=== PATIENT | female | born 1975 | race Caucasian/White ===

== ENCOUNTER 2018-03-19 13:06 | Outpatient (CLI) | payer BC ==
--- NOTE | 2018-03-19 15:04 | ULT ---
PELVIC SONOGRAM TRANSABDOMINAL AND TRANSVAGINAL IMAGING: HISTORY: Enlarged uterus. Pelvic mass. FINDINGS: The urinary bladder is unremarkable. The uterus has a heterogeneous echotexture and is 10.4 cm. No focal mass. The endometrium is 1.1 cm. No free fluid. Neither ovary is visualized with transabdomi nal or transvaginal imaging. No solid or cystic adnexal masses. Small nabothian cysts are associate d with the uterine cervix. IMPRESSION: No significant abnormalities are demonstrated. POS: MICHAEL
--- NOTE | 2018-03-19 15:05 | MMO ---
BILATERAL SCREENING MAMMOGRAM: Date: 03/19/18 INDICATION: Baseline exam. COMPARISON: None. FINDINGS: Interpretation of this exam was assisted with computer-aided detection. The breast parenchyma demonstrates a heterogeneous density. There are benign-appearing calcifications within the right breast. No suspicious mass, cluster of microcalcifications, or area of architectural distortion is evident. IMPRESSION: BIRADS 2: Benign Finding(s) Recommend routine annual mammographic screening. POS: MICHAEL
== END 2018-03-19 13:07 | disposition home or self-care (01) ==
LOC: SCSULT 13:06
PROVIDERS: ATTEND Family Medicine
DX: Z12.31 Encounter for screening mammogram for malignant neoplasm of breast (principal); N85.2 Hypertrophy of uterus
CPT/HCPCS: 76856; 77067

== ENCOUNTER 2020-03-17 08:49 | Outpatient (CLI) | payer BC ==
--- NOTE | 2020-03-17 09:18 | MMO ---
Bilateral MAMMO Bilat Screen [facility]. CLINICAL HISTORY: Patient is 45 years old and is seen for screening. The patient has no family history of breast cancer. The patient has no personal history of cancer. VIEWS: The views performed were: bilateral craniocaudal with tomosynthesis and bilateral mediolateral oblique with tomosynthesis. FILMS COMPARED: The present examination has been compared to a prior imaging study performed at [facility] on 03/19/2018. This study has been interpreted with the assistance of computer-aided detection. MAMMOGRAM FINDINGS: There are scattered fibroglandular densities. There are no suspicious masses, suspicious calcifications, or new areas of architectural distortion. IMPRESSION: THERE IS NO MAMMOGRAPHIC EVIDENCE OF MALIGNANCY. A ROUTINE FOLLOW-UP MAMMOGRAM IN 1 YEAR IS RECOMMENDED. THE RESULTS OF THIS EXAM WERE SENT TO THE PATIENT. ACR BI-RADS Category 1 - Negative MAMMOGRAPHY NOTE: 1. A negative mammogram report should not delay a biopsy if a dominant of clinically suspicious mass is present. 2. Approximately 10% to 15% of breast cancers are not detected by mammography. 3. Adenosis and dense breasts may obscure an underlying neoplasm. Reported by: CHRISSY MCNEILL MD Electonically Signed: [id number]
== END 2020-03-17 08:50 | disposition home or self-care (01) ==
LOC: BICMAMMO 08:49
PROVIDERS: ATTEND Family Medicine
DX: Z12.31 Encounter for screening mammogram for malignant neoplasm of breast (principal)
CPT/HCPCS: 77063; 77067